=== PATIENT | male | born 1965 ===

== ENCOUNTER 2020-09-09 13:09 | Outpatient (CLI) | payer SELFPAY ==
--- NOTE | 2020-09-09 13:25 | CT_ITS ---
WS: [id number] CT scan of the abdomen with Oral and IV contrast. Additional two-dimensional coronal and sagittal re construction was performed. 09/09/2020 Clinical Data: ABNORMAL FINDINGS ON IMAGING Comparison: None. DLP: 722.[address] scans at [facility] use at least one of these dose optimization techniques: automat ed exposure control; mA and/or kV adjustment per patient size (includes targeted exams where dose is matched to clinical indication); or iterative reconstruction. Findings: The lower lungs show no nodules, masses or effusions. There is a large hiatal hernia. The liver, spleen, adrenal glands and pancreas are normal. The gallbladder wall is thickened at 0.45 cm from pericholecystic fluid but no gallstones are seen. The kidneys show equal bilateral contrast excretion with a small right renal cortical cyst but no mas ses, hydronephrosis or renal calculi. No ureteral calculi are seen.. The abdominal aorta is normal in size with minimal calcification in the wall. There is haziness throu ghout the abdomen consistent with minimal diffuse ascites.. No abscess, adenopathy, mass, obstruction or free air is seen. No appendicitis or diverticulitis is seen. Oral contrast is in the stomach and small bowel and there is no bowel dilatation. There is a small umbilical hernia which contains only fat. The bones of the lower thorax, lumbar spine, pelvis, and hips demonstrate only minimal osteoarthritic change of the lower lumbar vertebral bodies with degenerative disc narrowing at L5-S1.. CT/CT abdomen w con* [id number] Impression: 1. Large hiatal hernia. 2. Diffuse haziness throughout the abdomen which indicates minimal ascites. 3. Negative for acute intra-abdominal disease.
[2020-09-09] MEDS: iohexol 300 mg/mL 50 mL Btl PO (13:27)
[2020-09-09] MEDS: iohexol 300 mg/mL 100 mL Btl IV (13:54)
== END 2020-09-09 13:10 | disposition home or self-care (01) ==
LOC: RADWPI 13:13
PROVIDERS: PCP Nurse Practitioner Family; Visit Provider Nurse Practitioner Family
DX: B19.20 Unspecified viral hepatitis C without hepatic coma (principal); K44.9 Diaphragmatic hernia without obstruction or gangrene
CPT/HCPCS: 74160; Q9967